=== PATIENT | female | born 1980 | race Caucasian/White ===

== ENCOUNTER 2016-12-24 18:13 | Emergency (ER) | payer MEDICAID ==
[~2016-12-24] VITALS: Ht 160 cm; Wt 43.0 kg
[~2016-12-24 18:13] MED LIST: IBUP200C PO; NPH10OT RIGHT EAR
[2016-12-24 18:35] VITALS: Ht 160 cm; Wt 43.0 kg
[2016-12-24] MEDS ORDERED: PROPARACAINE 0.5% 15 ML OPH BOTH EYES ONE (19:30)
--- NOTE | 2016-12-24 19:43 | ERA ---
ER Documentation Chief Complaint Date/Time DATE: 12/24/16 TIME: 19:32 Chief Complaint left eye twitching x 3 weeks w/ pain HPI This is an otherwise healthy Yoruba-speaking 36-year-old female presenting with a two-week history of eye twitching is intermittent nonpainful however patient states that there is a foreign body sensation in her eye 1 day. 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 Does not wear contacts. Has not been in the water/swimming recently. Patient has no recollection of foreign body entering I. Patient has not had symptoms like this before has not done anything to relieve the symptoms. Patient denies eye pain, change in vision, photophobia, changes in hearing, fever, headache or difficulty breathing. ROS All systems reviewed and are negative except as per history of present illness. Medications Home Meds Active Scripts Acetaminophen* (Tylenol*) 325 Mg Tablet, 1 TAB PO Q6 Y for PAIN AND OR ELEVATED TEMP, #20 TAB Prov:SANDRA CARVAJAL PA-C 12/24/16 Gentamicin Sulfate* (Gentamicin Sulfate* Ophth) 0.3% - 5 Ml Drops, 1 DROP LEFT EYE Q4 for 14 Days, EA Prov:SANDRA CARVAJAL PA-C 12/24/16 Ibuprofen* (Ibuprofen*) 200 Mg Capsule, 200 MG PO Q6, #30 CAP 0 Refills Prov:VICKY CHIU PA-C 07/15/15 Neomycin/Polymyxin/Hydrocort* (Cortisporin* Otic) 10 Ml Susp, 4 DROP RIGHT EAR QID, #1 EA 0 Refills Prov:IVCKY CHIU PA-C 07/15/15 Allergies Allergies: Coded Allergies: No Known Allergy (Unverified , 07/15/15) PMhx/Soc Medical and Surgical Hx: pt denies Medical Hx, pt denies Surgical Hx History of Surgery: No (DENIES MEDICAL AND SURGICAL HX.) Anesthesia Reaction: No Hx Neurological Disorder: No Hx Respiratory Disorders: No Hx Cardiac Disorders: No Hx Psychiatric Problems: No Hx Miscellaneous Medical Probl: No Hx Alcohol Use: No Hx Substance Use: No Hx Tobacco Use: No Smoking Status: Never smoker Physical Exam Vitals Vital Signs Date Time Temp Pulse Resp B/P Pulse Ox O2 Delivery O2 Flow Rate FiO2 12/24/16 18:35 97.8 78 20 143/79 99 Physical Exam Const: Healthy-appearing. Well-nourished. Well-developed. No acute distress. Eyes: Noninjected, normal sclera; EOMI and CHRISTIANO bilaterally. Neur: Neurovascularly intact bilaterally. Psych: Active and alert. Normal Mood and Affect. Oriented x3. Head: Normocephalic, Atraumatic. Ears: Normal External Ears, EACs clear, TM normal bilaterally without erythema. Nose: Normal nose without discharge, septal deviation, or sinus tenderness. Oral: No oral edema visualized. Mucous membranes moist and pink. Neck: No cervical lymphadenopathy, masses or goiter palpated. Full range of motion. Supple. Trachea midline. ~ No meningismus. Pulm: Good air movement in upper and lower respiratory tracts. No dyspnea, stridor, tripoding or drooling. Clear to auscultation bilaterally. Cardio: Regular rate and rhythm; No murmurs, gallops or rubs auscultated. No JVD grossly observed. Radial and posterior tibial pulses 2+ bilaterally. No cyanosis. Capillary refill less than 2 seconds. Abd: Soft, non tender, non distended. No guarding, masses. Normal bowel sounds. No McBurney's point tenderness. MS: Normal motor strength, normal tone with gross examination. Skin: No petechiae or rashes. No ulcer, induration, jaundice. Good turgor. Back: No midline, flank or CVA tenderness. Ext: No cyanosis, edema or palpable cord. Normal movement of all extremities grossly observed. Results 24 hrs Current Medications Medications (Trade) Dose Ordered Sig/Chaka Route PRN Reason Start Time Stop Time Status Last Admin Dose Admin Proparacaine HCl (Alcaine 0.5%) 1 drop ONCE ONCE BOTH EYES 12/24/16 19:30 12/24/16 19:31 DC 12/24/16 19:55 Procedures/MDM This is a 36-year-old female presenting with left eye discomfort as described in history and physical examination. Patient's visual acuity was checked and recorded by the nurses. Patient's eye was numbed with 1 drop of proparacaine bilaterally. Patient's eye pressure was measured in both eyes with the tonometer; results were as follows: There is currently no slit-lamp or Page lamp for use. Patient will be given gentamicin solution outpatient and be recommended to follow-up with ophthalmology. Patient is being worked up and evaluated for a pruritic, non-painful, left eye discomfort and twitching as described in the history and physical exam. My current differential includes, but is not limited to, the following: trauma, acute glaucoma, uveitis, conjunctivitis, hemorrhage, etc. Visual acuity was measured prior to the treatment and procedures. Two drops of proparacaine were used in both eyes. A tonometer was then used in both eyes for more accurate evaluation, and resulted in []. There is currently no slit-lamp or Page lamp available for use. The current most likely diagnosis is foreign body of left conjunctiva with left orbicularis spasm. Visual acuity was measured after the procedure and remained unchanged. At this time I have very little suspicion for acute glaucoma, corneal ulcer, keratitis, uveitis, or hemorrhage. I have spoke with the patient regarding their condition and future management. I spoke with my attending Dr. Osborne who agrees with the assessment and plan. They have verbally responded that they understand their status and treatment plan. The patients vitals are stable, and their current condition is appropriate for discharge. Ophthalmology referral handout has been given to the patient. The patient will be given discharge instructions with return precautions. Discharge medications: Acetaminophen for discomfort. Gentamicin ophthalmic solution to apply to left eye as directed. Departure Diagnosis: Primary Impression: Pain in eye Qualified Code: H57.12 - Pain in eye, left Additional Impression: Eye problem Condition: Stable Additional Instructions: Follow up with your ophthalmology within the next 1-3 days for a more thorough evaluation and a possible referral to a specialist. Return the the emergency department immediately if symptoms worsen or change. If you have any questions regarding medications, ask your pharmacist or us before you leave. If any adverse reactions occur while taking your medications, discontinue the treatment and return to the emergency department immediately. Take your medications as directed, and complete the entire course of treatment. SANDRA CARVAJAL PA-C Dec 24, 2016 19:43
[2016-12-24] MEDS ORDERED: GENT5DRO28 LEFT EYE (20:57)
[2016-12-24] MEDS ORDERED: ACET325T33 PO (20:57)
== END 2016-12-24 21:28 | disposition home or self-care (01) ==
LOC: FTE 18:13
DX: H57.12 Ocular pain, left eye (principal)
CPT/HCPCS: Z7502; Z7610; 99283